=== PATIENT | female | born 1940 | race Caucasian/White ===

== ENCOUNTER 2021-09-14 23:02 | Emergency (ER) | payer MEDICARE ==
[~2021-09-14] VITALS: Ht 157.5 cm; Wt 74.8 kg
[2021-09-15 00:34] LABS: RED BLOOD COUNT 4.12 M/UL (4.00-5.10); WHITE BLOOD COUNT 10.8 K/UL (4.5-11.0)
== END 2021-09-15 06:20 | disposition home or self-care (01) ==
LOC: ER1 23:02
PROVIDERS: Physician Assistant Medical
DX: U07.1 COVID-19 (principal); Z23 Encounter for immunization; I48.91 Unspecified atrial fibrillation; I10 Essential (primary) hypertension
CPT/HCPCS: 71045; 80053; 82550; 82553; 83605; 83880; 84484; 85025; 87040; 94640; 94664; 96374; 99285; J1100; M0247